=== PATIENT | male | born 1930 | race African-American/Black ===

== ENCOUNTER 2018-02-10 04:47 | Observation (INO) | payer OTHER, MEDICARE, MEDICAID ==
[~2018-02-10] VITALS: Ht 180.3 cm; Wt 70.0 kg
[~2018-02-10 04:47] MED LIST: ACETAMIN-HYDROcod 325-5 MG PO; COLC.6 PO
[2018-02-10 04:49] VITALS: BP 193/94; PULSE 47; RESP 22; TEMP 98; O2SAT 98
--- NOTE | 2018-02-10 05:27 | PD ---
HPI Chief Complaint: GI Complaint Time Seen by Provider: 05:23 Travel History International Travel<30 days: No Contact w/Intl Traveler<30days: No Traveled to known affect area: No History of Present Illness HPI 87-year-old male presents to the emergency department by private transportation for complaint of dizziness and abdominal pain. Patient has history of previous abdominal surgery small bowel obstruction. Patient did drink alcohol this evening. Patient has no known history of CAD, [place], CVA, arrhythmia, hypertension , dyslipidemia, diabetes, tobaccoism, abdominal aortic aneurysm, ischemic bowel disease, or urinary symptoms. Patient complains of dizziness that worsens with sitting upright denies any headache visual disturbance upper or lower extremity numbness tingling or weakness or ataxia gait. Some history is provided by patient's sister patient is fairly poor historian. No fall no injury Merlyn fall no injury. PFSH Past Medical History Narrative Medical Asthma gout colon cancer partial colectomy small bowel obstruction alcohol use; nursing notes reviewed Asthma: Yes Cancer: Yes (colon) Cardiovascular Problems: No Endocrine: No Gastrointestinal Disorders: Yes (bowel obstruction) Genitourinary: No Musculoskeletal: No Neurologic: No Psychiatric: No Respiratory: No Past Surgical History Abdominal Surgery: Yes (bowel resection) Other Surgery: Yes Social History Alcohol Use: Yes Tobacco Use: No Substance Use: No Allergies-Medications (Allergen,Severity, Reaction): Coded Allergies: No Known Allergies (Unverified Adverse Reaction, Unknown, 02/10/18) Reported Meds & Prescriptions Reported Meds & Active Scripts Active Colcrys (Colchicine) 0.6 Mg Tab 0.6 Mg PO DAILY [ACETAMIN-HYDROcod 325-5 MG] 1 TAB Tab 1 Tab PO Q4H PRN Review of Systems Except as stated in HPI: all other systems reviewed are Neg Physical Exam Narrative GENERAL: Well-developed well-nourished elderly male in no apparent distress GCS 14-reported based SKIN: Warm and dry. HEAD: Atraumatic. Normocephalic. EYES: Pupils equal and round. No scleral icterus. No injection or drainage. ENT: No nasal bleeding or discharge. Mucous membranes pink and moist. NECK: Trachea midline. No JVD. CARDIOVASCULAR: Regular rate and rhythm. RESPIRATORY: No accessory muscle use. Clear to auscultation. Breath sounds equal bilaterally. GASTROINTESTINAL: Abdomen soft, non-tender, nondistended. Hepatic and splenic margins not palpable. MUSCULOSKELETAL: Extremities without clubbing, cyanosis, or edema. No obvious deformities. NEUROLOGICAL: Awake and alert. No obvious cranial nerve deficits. Motor grossly within normal limits. Five out of 5 muscle strength in the arms and legs. Normal speech. PSYCHIATRIC: Appropriate mood and affect; insight and judgment normal. Data Data Last Documented VS Vital Signs Date Time Temp Pulse Resp B/P (MAP) Pulse Ox O2 Delivery O2 Flow Rate FiO2 02/10/18 04:49 98.0 47 22 193/94 (127) 98 Orders Orders Electrocardiogram (02/10/18 05:23) Complete Blood Count With Diff (02/10/18 05:23) Comprehensive Metabolic Panel (02/10/18 05:23) Magnesium (Mg) (02/10/18 05:23) Ckmb (Isoenzyme) Profile (02/10/18 05:23) Troponin I (02/10/18 05:23) Act Partial Throm Time (Ptt) (02/10/18 05:23) Prothrombin Time / Inr (Pt) (02/10/18 05:23) Urinalysis - C+S If Indicated (02/10/18 05:23) Chest, Single Ap (02/10/18 05:23) Ecg Monitoring (02/10/18 05:23) Iv Access Insert/Monitor (02/10/18 05:23) Oximetry (02/10/18 05:23) Sodium Chloride 0.9% Flush (Ns Flush) (02/10/18 05:30) Ct Brain W/O Iv Contrast(Rout) (02/10/18 ) Ct Abd/Pel W Iv Contrast(Rout) (02/10/18 ) Alcohol (Ethanol) (02/10/18 05:23) CKMB (02/10/18 05:35) CKMB% (02/10/18 05:35) Iohexol 350 Inj (Omnipaque 350 Inj) (02/10/18 06:46) Labs Laboratory Tests Test 02/10/18 05:35 White Blood Count 6.7 TH/MM3 Red Blood Count 4.92 MIL/MM3 Hemoglobin 14.2 GM/DL Hematocrit 41.2 % Mean Corpuscular Volume 83.6 FL Mean Corpuscular Hemoglobin 28.9 PG Mean Corpuscular Hemoglobin Concent 34.5 % Red Cell Distribution Width 14.9 % Platelet Count 176 TH/MM3 Mean Platelet Volume 7.9 FL Neutrophils (%) (Auto) 34.3 % Lymphocytes (%) (Auto) 50.7 % Monocytes (%) (Auto) 10.9 % Eosinophils (%) (Auto) 3.3 % Basophils (%) (Auto) 0.8 % Neutrophils # (Auto) 2.3 TH/MM3 Lymphocytes # (Auto) 3.4 TH/MM3 Monocytes # (Auto) 0.7 TH/MM3 Eosinophils # (Auto) 0.2 TH/MM3 Basophils # (Auto) 0.1 TH/MM3 CBC Comment DIFF FINAL Differential Comment Prothrombin Time 10.5 SEC Prothromb Time International Ratio 1.0 RATIO Activated Partial Thromboplast Time 22.7 SEC Blood Urea Nitrogen 14 MG/DL Creatinine 1.64 MG/DL Random Glucose 121 MG/DL Total Protein 7.7 GM/DL Albumin 3.5 GM/DL Calcium Level 8.3 MG/DL Magnesium Level 1.7 MG/DL Alkaline Phosphatase 55 U/L Aspartate Amino Transf (AST/SGOT) 21 U/L Alanine Aminotransferase (ALT/SGPT) 17 U/L Total Bilirubin 0.7 MG/DL Sodium Level 142 MEQ/L Potassium Level 3.7 MEQ/L Chloride Level 108 MEQ/L Carbon Dioxide Level 20.0 MEQ/L Anion Gap 14 MEQ/L Estimat Glomerular Filtration Rate 49 ML/MIN Total Creatine Kinase 155 U/L Creatine Kinase MB 1.7 NG/ML Troponin I LESS THAN 0.02 NG/ML Ethyl Alcohol Level LESS THAN 3 MG/DL MDM Medical Decision Making Medical Screen Exam Complete: Yes Emergency Medical Condition: Yes Medical Record Reviewed: Yes Interpretation(s) EKG: Sinus bradycardia rate 44 prolonged QT 539 ms/QTc corrected 490 ms Last Impressions Chest X-Ray 02/10/18 05 Signed Impressions: Service Date/Time: Saturday, February 10, 2018 05:37 - CONCLUSION: No acute disease. Cardiomegaly. Shahab Malcolm MD CBC & BMP Diagram 02/10/18 05:35 Total Protein 7.7, Albumin 3.5, Calcium Level 8.3 L, Magnesium Level 1.7, Alkaline Phosphatase 55, Aspartate Amino Transf (AST/SGOT) 21, Alanine Aminotransferase (ALT/SGPT) 17, Total Bilirubin 0.7 Vital Signs Date Time Temp Pulse Resp B/P (MAP) Pulse Ox O2 Delivery O2 Flow Rate FiO2 02/10/18 04:49 98.0 47 22 193/94 (127) 98 Troponin I: Less than 0.02, not elevated Serum alcohol less than 3, not elevated Differential Diagnosis Dizziness, arrhythmia, anemia, electrolyte disturbance, dehydration, alcohol intoxication, TIA, CVA, bowel obstruction, ACS Narrative Course Patient placed on awake overnight monitor IV access obtained specimens collected and sent for resulting imaging studies ordered At 633 patient resting comfortably voicing no concerns or complaints EKG is sinus bradycardia with rate of [address] elevation or injury pattern; lab values are found to be grossly within normal limits except for mild lymphocytosis, bicarb of 20, and renal insufficiency. CT brain noncontrast and CT abdomen pelvis studies pending CT ab/p: no acute process; CT brain w/o no acute process plan OBS admission for serial enzymes and arrhythmia BP: 162/90 Diagnosis Primary Impression: Dizziness Additional Impression: Abdominal pain Kayla Rangel MD February 10, 2018 05:27
[2018-02-10] MEDS ORDERED: SODIUM CHLORIDE 0.9% FLUSH 10 ML FLUSH IVF PRN (05:30)
--- NOTE | 2018-02-10 06:04 | RADRPT ---
EXAM DATE/TIME: 02/10/2018 05:37 [facility] COMPARISON: CHEST SINGLE AP, September 13, 2012, 19:26. INDICATIONS : Palpitations and short of breath. MEDICAL HISTORY : History of left knee effusion, colon cancer, bowel obstruction, asthma. SURGICAL HISTORY : History of bowel resection, left knee aspiration. ENCOUNTER: Initial ACUITY: 1 day PAIN SCORE: 0/10 LOCATION: Bilateral chest FINDINGS: A single view of the chest demonstrates the lungs to be symmetrically aerated without evidence of mas s, infiltrate or effusion. Cardiomegaly. The cardiomediastinal contours are unremarkable. Osseous s tructures are intact. CONCLUSION: No acute disease. Cardiomegaly. Shahab Malcolm MD on February 10, 2018 at 6:03 Board Certified Radiologist. This report was verified electronically.
[2018-02-10 06:07] LABS: AUTOMATED NEUTROPHIL # 2.3 TH/MM3 (1.8-7.7); BASOPHIL # 0.1 TH/MM3 (0-0.2); BASOPHIL % 0.8 % (0.0-2.0); EOSINOPHIL # 0.2 TH/MM3 (0-0.4); EOSINOPHIL % 3.3 % (0.0-4.0); HEMATOCRIT 41.2 % (39.0-51.0); HEMOGLOBIN 14.2 GM/DL (13.0-17.0); LYMPH % 50.7 % (9.0-44.0); LYMPHOCYTE # 3.4 TH/MM3 (1.0-4.8); MEAN CELL VOLUME 83.6 FL (80.0-100.0); MEAN CORPUSCULAR HEMOGLOBIN 28.9 PG (27.0-34.0); MEAN CORPUSCULAR HGB CONC 34.5 % (32.0-36.0); MEAN PLATELET VOLUME 7.9 FL (7.0-11.0); MONO % 10.9 % (0.0-8.0); MONOCYTE # 0.7 TH/MM3 (0-0.9); NEUT % 34.3 % (16.0-70.0); PLATELET COUNT 176 TH/MM3 (150-450); RED BLOOD COUNT 4.92 MIL/MM3 (4.50-5.90); RED CELL DISTRIBUTION WIDTH 14.9 % (11.6-17.2); WHITE BLOOD COUNT 6.7 TH/MM3 (4.0-11.0)
[2018-02-10 06:20] LABS: ALBUMIN 3.5 GM/DL (3.4-5.0); ALT (GPT) 17 U/L (12-78); AST (GOT) 21 U/L (15-37); BLOOD UREA NITROGEN 14 MG/DL (7-18); CALCIUM 8.3 MG/DL (8.5-10.1); CHLORIDE 108 MEQ/L (98-107); CREATININE 1.64 MG/DL (0.60-1.30); GLOMERULAR FILTRATION RATE 49 ML/MIN (>89); GLUCOSE,RANDOM 121 MG/DL (74-106); MAGNESIUM 1.7 MG/DL (1.5-2.5); SODIUM (NA) 142 MEQ/L (136-145)
[2018-02-10 06:22] LABS: ALKALINE PHOSPHATASE 55 U/L (45-117); TOTAL BILIRUBIN ADULT 0.7 MG/DL (0.2-1.0); TOTAL PROTEIN 7.7 GM/DL (6.4-8.2); TROPONIN I LESS THAN 0.02 NG/ML (0.02-0.05)
[2018-02-10] MEDS ORDERED: IOHEXOL 350 MG/ML 10 ML VIAL (for RAD DIAG) IVCONTRAST ONE (06:46)
--- NOTE | 2018-02-10 06:51 | RADRPT ---
EXAM DATE/TIME: 02/10/2018 06:40 [facility] COMPARISON: No previous studies available for comparison. INDICATIONS : Dizziness. RADIATION DOSE: 58.39 CTDIvol (mGy) MEDICAL HISTORY : Carcinoma, colon. SURGICAL HISTORY : Colon resection. ENCOUNTER: Initial ACUITY: 1 day PAIN SCALE: 0/10 LOCATION: cranial TECHNIQUE: Multiple contiguous axial images were obtained of the head. Using automated exposure control and adj ustment of the mA and/or kV according to patient size, radiation dose was kept as low as reasonably a chievable to obtain optimal diagnostic quality images. DICOM format image data is available electro nically for review and comparison. FINDINGS: CEREBRUM: The ventricles are normal for age. No evidence of midline shift, mass lesion, hemorrhage or acute in farction. No extra-axial fluid collections are seen. POSTERIOR FOSSA: The cerebellum and brainstem are intact. The 4th ventricle is midline. The cerebellopontine angle i s unremarkable. EXTRACRANIAL: The visualized portion of the orbits is intact. SKULL: The calvaria is intact. No evidence of skull fracture. CONCLUSION: No acute intracranial disease. Shahab Malcolm MD on February 10, 2018 at 6:48 Board Certified Radiologist. This report was verified electronically.
[2018-02-10 07:01] LABS: PROTHROMBIN TIME - PATIENT 10.5 SEC (9.8-11.6)
--- NOTE | 2018-02-10 07:05 | RADRPT ---
EXAM DATE/TIME: 02/10/2018 06:43 [facility] COMPARISON: CT ABDOMEN & PELVIS W CONTRAST, June 01, 2016, 17:28. INDICATIONS : Abdominal pain and vomiting. IV CONTRAST: 95 cc Omnipaque 350 (iohexol) IV ORAL CONTRAST: No oral contrast ingested. RADIATION DOSE: 7.81 CTDIvol (mGy) MEDICAL HISTORY : Carcinoma, colon. SURGICAL HISTORY : Colon resection. ENCOUNTER: Initial ACUITY: 2 days PAIN SCALE: 7/10 LOCATION: Abdomen. TECHNIQUE: Volumetric scanning of the abdomen and pelvis was performed. Using automated exposure control and ad justment of the mA and/or kV according to patient size, radiation dose was kept as low as reasonably achievable to obtain optimal diagnostic quality images. DICOM format image data is available electro nically for review and comparison. FINDINGS: LOWER LUNGS: The visualized lower lungs are clear. There is dependent atelectasis bilaterally. LIVER: There is a stable 6 mm low density lesion in the central liver that is incidental into small to ammy cterize. There are additional subtle smaller low density lesions scattered throughout the liver that are to small to characterize but are likely present previously. There is no dilation of the biliary tree. No calcified gallstones. SPLEEN: Normal size without lesion. PANCREAS: Within normal limits. KIDNEYS: Normal in size and shape. There is no mass, stone or hydronephrosis. ADRENAL GLANDS: Within normal limits. VASCULAR: There is no aortic aneurysm. Moderate atherosclerotic disease. BOWEL/MESENTERY: The stomach, small bowel, and colon demonstrate no acute abnormality. There is no free intraperitone al air or fluid. A small hiatal hernia is present. There are no signs of bowel obstruction. Appendix is normal. There is staple line in the distal sigmoid colon. ABDOMINAL WALL: Postsurgical changes are present on the anterior abdominal wall. RETROPERITONEUM: There is no lymphadenopathy. BLADDER: No wall thickening or mass. REPRODUCTIVE: Within normal limits. INGUINAL: There is no lymphadenopathy. There is stable fluid in the left inguinal canal. There are changes at t he right inguinal canal suggesting interval surgery for hernia repair. MUSCULOSKELETAL: There are degenerative changes of the lumbar spine. CONCLUSION: 1. No acute finding is identified to explain the clinical symptoms. No acute abnormality is visualize d. 2. There is a 6 mm low-density lesion in the liver that is too small to characterize and subtle innum erable smaller low density lesions that are also too small to characterize but do not appear signific antly changed from the prior study suggesting a benign process. 3. Moderate atherosclerotic disease. Wes Casillas MD on February 10, 2018 at 6:57 Board Certified Radiologist. This report was verified electronically.
[2018-02-10 07:32] VITALS: BP 162/91; PULSE 69; RESP 23; O2SAT 99
--- NOTE | 2018-02-10 07:52 | PD ---
Data Data Last Documented VS Vital Signs Date Time Temp Pulse Resp B/P (MAP) Pulse Ox O2 Delivery O2 Flow Rate FiO2 02/10/18 07:32 69 23 162/91 (114) 99 Room Air 02/10/18 04:49 98.0 Orders Orders Electrocardiogram (02/10/18 05:23) Complete Blood Count With Diff (02/10/18 05:23) Comprehensive Metabolic Panel (02/10/18 05:23) Magnesium (Mg) (02/10/18 05:23) Ckmb (Isoenzyme) Profile (02/10/18 05:23) Troponin I (02/10/18 05:23) Act Partial Throm Time (Ptt) (02/10/18 05:23) Prothrombin Time / Inr (Pt) (02/10/18 05:23) Urinalysis - C+S If Indicated (02/10/18 05:23) Chest, Single Ap (02/10/18 05:23) Ecg Monitoring (02/10/18 05:23) Iv Access Insert/Monitor (02/10/18 05:23) Oximetry (02/10/18 05:23) Sodium Chloride 0.9% Flush (Ns Flush) (02/10/18 05:30) Ct Brain W/O Iv Contrast(Rout) (02/10/18 ) Ct Abd/Pel W Iv Contrast(Rout) (02/10/18 ) Alcohol (Ethanol) (02/10/18 05:23) CKMB (02/10/18 05:35) CKMB% (02/10/18 05:35) Iohexol 350 Inj (Omnipaque 350 Inj) (02/10/18 06:46) Admit Order (Ed Use Only) (02/10/18 07:48) Labs Laboratory Tests Test 02/10/18 05:35 White Blood Count 6.7 TH/MM3 Red Blood Count 4.92 MIL/MM3 Hemoglobin 14.2 GM/DL Hematocrit 41.2 % Mean Corpuscular Volume 83.6 FL Mean Corpuscular Hemoglobin 28.9 PG Mean Corpuscular Hemoglobin Concent 34.5 % Red Cell Distribution Width 14.9 % Platelet Count 176 TH/MM3 Mean Platelet Volume 7.9 FL Neutrophils (%) (Auto) 34.3 % Lymphocytes (%) (Auto) 50.7 % Monocytes (%) (Auto) 10.9 % Eosinophils (%) (Auto) 3.3 % Basophils (%) (Auto) 0.8 % Neutrophils # (Auto) 2.3 TH/MM3 Lymphocytes # (Auto) 3.4 TH/MM3 Monocytes # (Auto) 0.7 TH/MM3 Eosinophils # (Auto) 0.2 TH/MM3 Basophils # (Auto) 0.1 TH/MM3 CBC Comment DIFF FINAL Differential Comment Prothrombin Time 10.5 SEC Prothromb Time International Ratio 1.0 RATIO Activated Partial Thromboplast Time 22.7 SEC Blood Urea Nitrogen 14 MG/DL Creatinine 1.64 MG/DL Random Glucose 121 MG/DL Total Protein 7.7 GM/DL Albumin 3.5 GM/DL Calcium Level 8.3 MG/DL Magnesium Level 1.7 MG/DL Alkaline Phosphatase 55 U/L Aspartate Amino Transf (AST/SGOT) 21 U/L Alanine Aminotransferase (ALT/SGPT) 17 U/L Total Bilirubin 0.7 MG/DL Sodium Level 142 MEQ/L Potassium Level 3.7 MEQ/L Chloride Level 108 MEQ/L Carbon Dioxide Level 20.0 MEQ/L Anion Gap 14 MEQ/L Estimat Glomerular Filtration Rate 49 ML/MIN Total Creatine Kinase 155 U/L Creatine Kinase MB 1.7 NG/ML Troponin I LESS THAN 0.02 NG/ML Ethyl Alcohol Level LESS THAN 3 MG/DL MDM Supervised Visit with [facility]A: No Narrative Course This case checked out to me by Dr. Rangel at 7 AM. She has requested that I placed this patient and telemetry observation for symptomatic bradycardia. I have reviewed the entirety of the workup. Patient is 87-year-old with dizziness/lightheadedness and generalized weakness with sinus rhythm in the mid 40s. At this time blood pressure is 160 systolic I reviewed the case with Dr Fish who has agreed. Diagnosis Primary Impression: Symptomatic sinus bradycardia Additional Impressions: Dizziness Generalized weakness Admitting Information Admitting Physician Requests: Observation Giovani Sandoval MD February 10, 2018 07:51
[2018-02-10 09:09] VITALS: BP 178/88; PULSE 66; RESP 24; O2SAT 99
[2018-02-10 10:48] VITALS: BP 156/77; PULSE 56; RESP 15; O2SAT 99
--- NOTE | 2018-02-10 11:43 | HHI.HP ---
[facility] Service [facility] Primary Care Physician [facility] Admission Diagnosis symptomatic bradycardia Diagnoses: Chief Complaint: Dizziness Travel History International Travel<30 Days: No Contact w/Intl Traveler <30 Da: No Traveled to Known Affected Are: No History of Present Illness Written by Pradeep Sapp, acting as scribe for Dr. Fish on 02/10/18 at 11: 43. Patient is an 87-year-old -[place] male with medical history of asthma, gout, history of colon cancer with partial colectomy who came into the hospital secondary to dizziness. Patient denies any medical conditions or taking any medications. States that he is taking wine as medication. States that he started to feel dizzy at home, where in he admits to drinking wine almost every day but then he tried drinking gin and that is when all his symptoms occurred. States that he is now feeling better. Denies any dizziness, nausea, vomiting, abdominal pain. Discussed with patient extensively need for alcohol cessation. States that he has a follow-up appointment with the [place] doctor that he sees every 3 months on Tuesday. Denies pain and discomfort. Denies SOB/ dyspnea. Denies chest pain, palpitations, headaches. Denies fevers, chills. Denies dysuria. Review of Systems Except as stated in HPI: all other systems reviewed are Neg Past Family Social History Past Medical History Asthma Gout Colon cancer with partial colectomy Small bowel obstruction Alcohol use Past Surgical History Partial Colectomy Hernia Repair Reported Medications None Allergies: Coded Allergies: No Known Allergies (Unverified Adverse Reaction, Unknown, 02/10/18) Active Ordered Medications Current Medications Medications (Trade) Dose Ordered Sig/Mayte Route Start Time Stop Time Status Last Admin (NS Flush) 2 ml UNSCH PRN IVF 02/10/18 05:30 Family History Mother 93 yrs old Social History Lives alone. Follows up with the [place]. Drinks red wine almost every day, occasionally drinks gin Denies tobacco use Denies illicit drug use Physical Exam Vital Signs Vital Signs Date Time Temp Pulse Resp B/P (MAP) Pulse Ox O2 Delivery O2 Flow Rate FiO2 02/10/18 10:48 56 15 156/77 (103) 99 Room Air 02/10/18 09:09 66 24 178/88 (118) 99 Room Air 02/10/18 07:32 69 23 162/91 (114) 99 Room Air 02/10/18 04:49 98.0 47 22 193/94 (127) 98 Physical Exam GENERAL: This is a well-nourished, well-developed patient, in no apparent distress. SKIN: No rashes, ecchymoses or lesions. Cool and dry. HEAD: Normocephalic. EYES: Pupils equal round and reactive. Extraocular motions intact. No scleral icterus. No injection or drainage. ENT: Nose without bleeding. Throat without erythema. Uvula midline. Airway patent. NECK: Trachea midline. CARDIOVASCULAR: Regular rate and rhythm without murmurs, gallops, or rubs. RESPIRATORY: Clear to auscultation. Breath sounds equal bilaterally. No wheezes , rales, or rhonchi. GASTROINTESTINAL: Abdomen soft, non-tender, nondistended. Bowel sounds active 4. MUSCULOSKELETAL: Extremities without clubbing, cyanosis, or edema. NEUROLOGICAL: Awake and alert. Cranial nerves II through XII intact. Motor and sensory grossly within normal limits. Normal speech. Laboratory Laboratory Tests Test 02/10/18 05:35 White Blood Count 6.7 Red Blood Count 4.92 Hemoglobin 14.2 Hematocrit 41.2 Mean Corpuscular Volume 83.6 Mean Corpuscular Hemoglobin 28.9 Mean Corpuscular Hemoglobin Concent 34.5 Red Cell Distribution Width 14.9 Platelet Count 176 Mean Platelet Volume 7.9 Neutrophils (%) (Auto) 34.3 Lymphocytes (%) (Auto) 50.7 Monocytes (%) (Auto) 10.9 Eosinophils (%) (Auto) 3.3 Basophils (%) (Auto) 0.8 Neutrophils # (Auto) 2.3 Lymphocytes # (Auto) 3.4 Monocytes # (Auto) 0.7 Eosinophils # (Auto) 0.2 Basophils # (Auto) 0.1 CBC Comment DIFF FINAL Differential Comment Prothrombin Time 10.5 Prothromb Time International Ratio 1.0 Activated Partial Thromboplast Time 22.7 Blood Urea Nitrogen 14 Creatinine 1.64 Random Glucose 121 Total Protein 7.7 Albumin 3.5 Calcium Level 8.3 Magnesium Level 1.7 Alkaline Phosphatase 55 Aspartate Amino Transf (AST/SGOT) 21 Alanine Aminotransferase (ALT/SGPT) 17 Total Bilirubin 0.7 Sodium Level 142 Potassium Level 3.7 Chloride Level 108 Carbon Dioxide Level 20.0 Anion Gap 14 Estimat Glomerular Filtration Rate 49 Total Creatine Kinase 155 Creatine Kinase MB 1.7 Troponin I LESS THAN 0.02 Ethyl Alcohol Level LESS THAN 3 Result Diagram: 02/10/18 0535 02/10/18 0535 Imaging Last Impressions Chest X-Ray 02/10/18 0523 Signed Impressions: Service Date/Time: Saturday, February 10, 2018 05:37 - CONCLUSION: No acute disease. Cardiomegaly. Shahab Malcolm MD Head CT 02/10/18 0000 Signed Impressions: Service Date/Time: Saturday, February 10, 2018 06:40 - CONCLUSION: No acute intracranial disease. Shahab Malcolm MD Abdomen/Pelvis CT 02/10/18 0000 Signed Impressions: Service Date/Time: Saturday, February 10, 2018 06:43 - CONCLUSION: 1. No acute finding is identified to explain the clinical symptoms. No acute abnormality is visualized. 2. There is a 6 mm low-density lesion in the liver that is too small to characterize and subtle innumerable smaller low density lesions that are also too small to characterize but do not appear significantly changed from the prior study suggesting a benign process. 3. Moderate atherosclerotic disease. MD Whitley Cotton VTE Risk Assessment Caprini VTE Risk Assessment: Mod/High Risk (score >= 2) Caprini Risk Assessment Model Point Value = 1 Point Value = 2 Point Value = 3 Point Value = 5 Age 41-60 Minor surgery BMI > 25 kg/m2 Swollen legs Varicose veins or History of unexplained or recurrent spontaneous Oral contraceptives or hormone replacement Sepsis (< 1 month) Serious lung disease, including pneumonia (< 1 month) Abnormal pulmonary function Acute myocardial infarction Congestive heart failure (< 1 month) History of inflammatory bowel disease Medical patient at bed rest Age 61-74 Arthroscopic surgery Major open surgery (> 45 min) Laparoscopic surgery (> 45 min) Malignancy Confined to bed (> 72 hours) Immobilizing plaster cast Central venous access Age >= 75 History of VTE Family history of VTE Factor V Leiden Prothrombin [id number] Lupus anticoagulant Anticardiolipin antibodies Elevated serum homocysteine Heparin-induced thrombocytopenia Other congenital or acquired thrombophilia Stroke (< 1 month) Elective arthroplasty Hip, pelvis, or leg fracture Acute spinal cord injury (< 1 month) Prophylaxis Regimen Total Risk Factor Score Risk Level Prophylaxis Regimen 0-1 Low Early ambulation 2 Moderate Order ONE of the following: *Sequential Compression Device (SCD) *Heparin 5000 units SQ BID 3-4 Higher Order ONE of the following medications: *Heparin 5000 units SQ TID *Enoxaparin/Lovenox 40 mg SQ daily (WT < 150 kg, CrCl > 30 mL/min) *Enoxaparin/Lovenox 30 mg SQ daily (WT < 150 kg, CrCl > 10-29 mL/min) *Enoxaparin/Lovenox 30 mg SQ BID (WT < 150 kg, CrCl > 30 mL/min) AND/OR *Sequential Compression Device (SCD) 5 or more Highest Order ONE of the following medications: *Heparin 5000 units SQ TID (Preferred with Epidurals) *Enoxaparin/Lovenox 40 mg SQ daily (WT < 150 kg, CrCl > 30 mL/min) *Enoxaparin/Lovenox 30 mg SQ daily (WT < 150 kg, CrCl > 10-29 mL/min) *Enoxaparin/Lovenox 30 mg SQ BID (WT < 150 kg, CrCl > 30 mL/min) AND *Sequential Compression Device (SCD) Assessment and Plan Problem List: (1) EtOH dependence ICD Code: F10.20 - Alcohol dependence, uncomplicated (2) Dizziness ICD Code: R42 - Dizziness and giddiness Status: Acute Assessment and Plan Patient is an 87-year-old -[place] male with medical history of asthma, gout, history of colon cancer with partial colectomy who came into the hospital secondary to dizziness. Dizziness -Possibly related to alcohol use, gin -Denies dizziness on exam Bradycardia -Heart rate 50s-60s -[facility] Abdominal pain -Possibly related to alcohol use -Pepcid twice daily -Discussed with patient extensively use of alcohol can increase risk of gastritis and ulceration. Discussed medication use. -Denies abdominal pain on exam EtOH -Discussed with patient alcohol cessation -States he would not drink gin again that is making him dizzy -Discussed use OTC multivitamin, thiamine Discharge patient to home Condition on discharge: Improved Regular Diet as tolerated, Alcohol cessation Ad Lea activity Rx written: Pepcid 20 mg twice daily [facility]. This note was transcribed by diana Sapp. I, Dr. Shahab Fish personally performed the history, physical exam, and medical decision making; and confirmed the accuracy of the information in the transcribed note. Authenticated by Dr. Shahab Fish on 02/10/18 at 11:43. Code Status Full code Discussed Condition With Patient, nursing, ED attending Pradeep Issa February 10, 2018 11:43 Shahab Fish MD February 10, 2018 11:44
--- NOTE | 2018-02-10 11:44 | HHI.DCPOC ---
Discharge Care Plan Diagnosis: (1) Dizziness Goals to Promote Your Health * To prevent worsening of your condition and complications * To maintain your health at the optimal level Directions to Meet Your Goals Take your medications as prescribed Follow your dietary instruction Follow activity as directed Keep your appointments as scheduled Take your immunizations and boosters as scheduled If your symptoms worsen call your PCP, if no PCP go to Urgent Care Center or Emergency Room Smoking is Dangerous to Your Health. Avoid second hand smoke Call the 24-hour hour crisis hotline for domestic abuse at Pr[facility]ep Issa February 10, 2018 11:44
[2018-02-10] MEDS ORDERED: FAMO1TAB37 PO (11:49)
[2018-02-10 12:45] VITALS: BP 164/85
--- NOTE | 2018-02-11 08:24 | EKG ---
Date Performed: 02/10/2018 Time Performed: 05:35:22 PTAGE: 87 years EKG: SINUS BRADYCARDIA PROLONGED QT INTERVAL ABNORMAL ECG PREVIOUS TRACING : 06/01/2016 16.53 DOCTOR: Delfina Arce Interpretating Date/Time 02/11/2018 08:23:46
== END 2018-02-10 12:45 | disposition home or self-care (01) ==
LOC: NEPC 04:47 → NEDA 07:49 → UNDOADMOB 07:50 → NEDA 07:50 → UNDODISOB 12:45 → NEPC 12:45
PROVIDERS: ADMIT Hospitalist; ATTEND Hospitalist
DX: R42 Dizziness and giddiness (principal); R00.1 Bradycardia, unspecified; R10.9 Unspecified abdominal pain; R53.1 Weakness; F10.20 Alcohol dependence, uncomplicated; D72.820 Lymphocytosis (symptomatic); N28.9 Disorder of kidney and ureter, unspecified; J45.909 Unspecified asthma, uncomplicated; Y90.0 Blood alcohol level of less than 20 mg/100 ml; Z85.038 Personal history of other malignant neoplasm of large intestine; Z79.899 Other long term (current) drug therapy
CPT/HCPCS: 70450; 71045; 74177; 80053; 80307; 82550; 82552; 83735; 84484; 85025; 85610; 85730; 93005; 99285; G0378; Q9967